=== PATIENT | female | born 1985 | race Caucasian/White ===

== ENCOUNTER 2020-02-22 08:43 | Outpatient (CLI) | payer OTHER, SELFPAY ==
[2020-02-22 09:05] LABS: Basophils # 0.1 10^3/uL (0.0-0.1); Basophils % 1.4 %; Eosinophils # 0.1 10^3/uL (0.0-0.8); Eosinophils % 1.2 %; Hematocrit 45.2 % (37.0-47.0); Hemoglobin 14.7 g/dL (11.5-15.3); Lymphocytes # 2.2 10^3/uL (0.8-4.8); Lymphocytes % 28.9 %; Mean Corpuscular HGB Conc 32.5 g/dL (30.0-36.0); Mean Corpuscular Volume 89.2 fL (81-99); Mean Platelet Volume 9.8 fL (7.4-10.4); Monocytes # 0.5 10^3/uL (0.2-0.9); Monocytes % 6.5 %; Neutrophils # 4.78 10^3/uL (1.8-7.7); Neutrophils % 61.6 %; Nucleated Red Blood Cells % 0 %; Platelet Count 347 10^3/cmm (130-400); Red Blood Count 5.07 10^6/uL (4.1-5.3); Red Cell Distribution Width 13.1 % (12.1-15.1); White Blood Count 7.8 10^3/uL (4.0-10.0)
[2020-02-22 09:21] LABS: Anion Gap 13.5 (5-19); Blood Urea Nitrogen 8 mg/dL (6-20); Calcium 8.9 mg/dL (8.5-10.5); Carbon Dioxide 24 mmol/L (22-29); Chloride 104 mmol/L (98-107); Glomerular Filtration Rate 81.2 mL/min (90-130); Glucose 97 mg/dL (65-115); Osmolality Calculated 280 mOsm/kg (285-295); Potassium 4.5 mmol/L (3.5-5.1); Sodium 137 mmol/L (136-145)
== END 2020-02-22 08:44 | disposition home or self-care (01) ==
PROVIDERS: PCP Family Medicine; Visit Provider Podiatrist Foot & Ankle Surgery
DX: L30.9 Dermatitis, unspecified (principal)
CPT/HCPCS: 80048; 85025

== ENCOUNTER → 2020-03-21 09:31 | Outpatient (BNVA) | payer OTHER, SELFPAY | PROVIDERS: PCP Family Medicine; Visit Provider Nurse Practitioner Women's Health | DX: Z01.419 Encounter for gynecological examination (general) (routine) without abnormal findings (principal) | CPT/HCPCS: 88175 ==

== ENCOUNTER → 2020-10-02 09:38 | Outpatient (BNVA) | payer OTHER, SELFPAY | PROVIDERS: Visit Provider Internal Medicine Rheumatology | DX: M19.90 Unspecified osteoarthritis, unspecified site (principal); Z79.899 Other long term (current) drug therapy; Z11.59 Encounter for screening for other viral diseases; Z11.1 Encounter for screening for respiratory tuberculosis | CPT/HCPCS: 36415; 73130; 73562; 73630; 80076; 82306; 82565; 84550; 85025; 85651; 86431; 86480; 86704; 86803; 87340 ==

== ENCOUNTER → 2020-10-10 15:10 | Outpatient (BNVA) | payer OTHER, SELFPAY | PROVIDERS: PCP Family Medicine; Visit Provider Internal Medicine Rheumatology | DX: M19.90 Unspecified osteoarthritis, unspecified site (principal); L40.0 Psoriasis vulgaris; Z79.899 Other long term (current) drug therapy; E55.9 Vitamin D deficiency, unspecified | CPT/HCPCS: 99204 ==

== ENCOUNTER 2020-12-11 20:39 | Emergency (ER) | payer OTHER, SELFPAY ==
[2020-12-11 21:12] VITALS: BP 126/90; PULSE 78; RESP 16; TEMP 36.4; O2SAT 98; BMI 34.4
--- NOTE | 2020-12-11 21:20 | ECG_ITS ---
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 Measurements Intervals [place] Rate: 75 P: 50 SC: 151 QRS: -13 QRSD: 86 T: 59 QT: 385 QTc: 432 Interpretive Statements SINUS RHYTHM No previous ECG available for comparison Electronically Signed On 12-12-2020 6:59:59 CDT by Padmini Luna M.D. [id number]
--- NOTE | 2020-12-11 21:20 | XRR_ITS ---
PROCEDURE INFORMATION: Exam: XR Chest Exam date and time: 12/11/2020 9:20 PM Age: 35 years old Clinical indication: Other: Epigastric, luq pain; Prior surgery; Surgery type: Breast reduction, appy, abd plasty, colon resection; Additional info: Cp TECHNIQUE: Imaging protocol: XR of the chest. Views: 1 view. COMPARISON: CT abdomen pelvis w con* [id number] 02/22/2015 9:15 AM FINDINGS: Lungs: Unremarkable. No consolidation. Pleural spaces: Unremarkable. No pleural effusion. No pneumothorax. Heart/Mediastinum: Unremarkable. No cardiomegaly. Bones/joints: Unremarkable. XR/XR chest 1V portable [id number] IMPRESSION: No acute findings.
--- NOTE | 2020-12-11 23:20 | ECG_ITS ---
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 Measurements Intervals [place] Rate: 61 P: 52 PA: 171 QRS: 41 QRSD: 109 T: 62 QT: 447 QTc: 451 Interpretive Statements SINUS RHYTHM LOW QRS VOLTAGE IN PRECORDIAL LEADS [QRS DEFLECTION < 1.0 mV IN CHEST LEADS] POSSIBLE ANTERIOR MYOCARDIAL INFARCTION [30 ms Q WAVE IN V3/V4, OR R < 0.2 mV IN V4], PROBABLY OLD Compared to ECG 12/12/2020 00:30:25 Low QRS voltage now present Myocardial infarct finding now present Electronically Signed On 12-12-2020 20:40:01 CDT by Timi Dao M.D. [id number]
--- NOTE | 2020-12-11 23:57 | CTR_ITS ---
PROCEDURE INFORMATION: Exam: CT Abdomen And Pelvis With Contrast Exam date and time: 12/11/2020 11:57 PM Age: 35 years old Clinical indication: Abdominal pain; Localized; Prior surgery; Surgery type: Colon resection. Salpingectomy. Appy. ; Patient HX: Left sided abd pain. TECHNIQUE: Imaging protocol: Computed tomography of the abdomen and pelvis with contrast. Radiation optimization: All CT scans at this facility use at least one of these dose optimization techniques: automated exposure control; mA and/or kV adjustment per patient size (includes targeted exams where dose is matched to clinical indication); or iterative reconstruction. Contrast material: OMNI 300; Contrast volume: 95 ml; Contrast route: INTRAVENOUS (IV); COMPARISON: CT abdomen pelvis w con* [id number] 02/22/2015 9:15 AM RADIATION DOSE METRICS: Total DLP (mGy-cm): 1517.97 FINDINGS: Liver: Normal. No mass. Gallbladder and bile ducts: Normal. No calcified stones. No ductal dilation. Pancreas: Simple cystic lesion in the pancreatic tail measuring 2.5 cm diameter. Growth since prior. Previous measurement 1.1 cm on 02/22/2015. No dilation of main pancreatic duct. No peripancreatic inflammation. Spleen: Normal. No splenomegaly. Adrenal glands: Normal. No mass. Kidneys and ureters: Normal. No hydronephrosis. Stomach and bowel: Unremarkable. No obstruction. No mucosal thickening. Appendix: Appendectomy. Appendectomy. Intraperitoneal space: Unremarkable. No free air. No significant fluid collection. Vasculature: Unremarkable. No abdominal aortic aneurysm. Lymph nodes: Unremarkable. No enlarged lymph nodes. Urinary bladder: Unremarkable as visualized. Reproductive: Unremarkable positioning of intrauterine device. Negative for adnexal mass. Bones/joints: Unremarkable. No acute fracture. Soft tissues: Unremarkable. CT/CT abdomen pelvis w con* [id number] IMPRESSION: 1. Negative for acute abdominopelvic pathology. 2. Slow, mild growth of a pancreatic tail cystic mass. Endoscopic ultrasound characterization may be beneficial. Radiation Dose CTDIVOL = (mGy): DLP = 1517.97 (mGy-cm)
[2020-12-12 00:08] LABS: Basophils # 0.1 10^3/uL (0.0-0.1); Basophils % 0.7 %; Eosinophils % 0.3 %; Hematocrit 42.6 % (37.0-47.0); Hemoglobin 14.1 g/dL (11.5-15.3); Lymphocytes # 3.3 10^3/uL (0.8-4.8); Lymphocytes % 28.1 %; Mean Corpuscular HGB Conc 33.1 g/dL (30.0-36.0); Mean Corpuscular Hemoglobin 29.9 pg (28.0-34.0); Mean Corpuscular Volume 90.4 fL (81-99); Mean Platelet Volume 9.6 fL (7.4-10.4); Monocytes # 0.7 10^3/uL (0.2-0.9); Monocytes % 5.8 %; Neutrophils # 7.56 10^3/uL (1.8-7.7); Neutrophils % 64.8 %; Nucleated Red Blood Cells % 0 %; Platelet Count 362 10^3/cmm (130-400); Red Blood Count 4.71 10^6/uL (4.1-5.3); Red Cell Distribution Width 14.6 % (12.1-15.1); White Blood Count 11.7 10^3/uL (4.0-10.0)
[2020-12-12] MEDS: iohexol 300 mg/mL 100 mL Btl IV (00:16)
[2020-12-12 00:26] LABS: Troponin(5th) Baseline 6 ng/L (0-10)
[2020-12-12 00:29] LABS: Alanine Aminotransferase 12 U/L (0-33); Albumin Level 4.6 g/dL (3.5-5.2); Alkaline Phosphatase 85 IU/L (35-105); Anion Gap 14.1 (5-19); Aspartate Amino Transferase 13 U/L (0-32); Blood Urea Nitrogen 10 mg/dL (6-20); Calcium 9.2 mg/dL (8.5-10.5); Carbon Dioxide 25 mmol/L (22-29); Chloride 103 mmol/L (98-107); Globulin 2.4 g/dL (1.3-4.6); Glomerular Filtration Rate 70.5 mL/min (90-130); Glucose 98 mg/dL (65-115); Lipase 237 U/L (13-60); Osmolality Calculated 285 mOsm/kg (285-295); Potassium 4.1 mmol/L (3.5-5.1); Sodium 138 mmol/L (136-145); Total Bilirubin 0.4 mg/dL (0.15-1.2)
--- NOTE | 2020-12-12 00:57 | W.ED.ABDPA2 ---
HPI - Abdominal Pain General: Chief Complaint: Abdominal Pain Stated Complaint: severe ab pain, chest pain Time Seen by Provider: 12/11/20 23:44 Source: patient Mode of arrival: ambulatory Limitations: no limitations History of Present Illness: HPI narrative: 35-year-old female states that earlier today she started having epigastric abdominal pain. States the pains were sharp in nature and she had some nausea. She rates her pain a 7 out of 10. Denies any worsening improving factors. States it slightly radiates to her chest as well. She had a GI cocktail with no improvement. Associated Symptoms: Denies chills, diarrhea, dysuria, fever(s), nausea and vomiting Review of Systems Const: Denies: fever(s), chills, body aches or change in appetite Eyes: Denies: blurry vision or eye discomfort ENMT: Denies: throat pain or dental pain Card: Denies: chest pain Resp: Denies: dyspnea GI: Reports: abdominal pain; Denies: nausea, vomiting or diarrhea : Denies: dysuria Musc: Denies: neck pain or back pain Skin/Breast: Denies: rash Neuro: Denies: headache(s) Psych: Denies: depression José/Lymph: Denies: easy bruising All/Imm: Denies: urticaria PFSH ED PFSH: Medical History (Updated 12/12/20 @ 02:16 by Cleopatra Witt MD) High risk medication use Immunization counseling Inflammatory arthritis Migraine without aura No pertinent past medical history neghx: htn,dm,thyroid,dvt/pe Onychodystrophy Plaque psoriasis Psoriatic arthritis Surgical History History of colon resection (~02/2015) due to bowel obstruction Hx of abdominoplasty (~2018) Hx of breast reduction, elective (~2015) Hx of unilateral salpingectomy (~03/1997) Left side Family History Father Heart disease Hypercholesteremia Hypertension Grandmother Thyroid disease Maternal Diabetes maternal Mother Cancer, Onset Age: 50 Vaginal cancer Denies family history of Colon cancer Ovarian cancer Clotting disorder Breast cancer Bleeding disorder Uterine cancer Stroke Social History Smoking and tobacco status: never smoked Alcohol intake: current Alcohol intake frequency: holidays/special occasions only Current occupation: [employer] [place] Additional social history: - Tobacco use: Never Alcohol use: Occasional Drug use: Never Physical Exam Const: COMMON NORMALS: no acute distress, patient oriented x3 and healthy appearing HENMT: COMMON NORMALS: normocephalic and atraumatic HEAD & SCALP: normocephalic and atraumatic Eye: COMMON NORMALS: Equal, round and reactive pupils present and EOMs intact bilaterally PUPIL: Yes Equal, round and reactive pupils present Neck/C-Spine: COMMON NORMALS: full ROM and supple Chest: COMMONS NORMALS: normal inspection of the chest and normal palpation of entire chest wall Resp: COMMON NORMALS: normal respiratory effort, No retractions, No use of accessory muscles and clear to auscultation bilaterally AUSCULTATION: clear to auscultation bilaterally Cardio: COMMON NORMALS: regular rate, regular rhythm and No murmurs present (Cardio) RATE: regular rate RHYTHM: regular rhythm GI: COMMON NORMALS: Normal to inspection, nondistended, normoactive bowel sounds present, Soft to palpation and no masses PALPATION: Yes Soft to palpation and Yes Tenderness to palpation present (GI) (epigastric tenderness) Extremity: COMMON NORMALS: normal to inspection and full ROM Neuro: COMMON NORMALS: patient oriented x3, moves all extremities and no focal motor deficits Psych: COMMON NORMALS: mental status grossly normal, Normal thought process present and cooperative THOUGHT PROCESS: Normal thought process present Skin: COMMON NORMALS: no rashes or lesions noted and no wounds GENERAL SKIN EXAM: no rashes or lesions noted Course Vital Signs: Vital signs: Vital Signs Temperature 97.5 F L 12/11/20 21:12 Pulse Rate 58 L 12/12/20 01:15 Respiratory Rate 18 12/12/20 01:21 Blood Pressure 125/97 12/12/20 01:15 Pulse Oximetry 100 12/12/20 01:21 MDM - Abdominal Pain MDM Narrative: Medical decision making narrative: Patient presents here with abdominal pain does have a mild pancreatitis. Her pain is much improved. Abdominal exam is benign. I spoke to Dr. Cooley who will follow her. Patient prescribed [place] for home and is to return if worsening. She understands agrees to plan. Lab Data: Labs: Lab Results 0712/12/20 12/12/20 Range/Units 00:00 00:00 00:00 WBC 11.7 H (4.0-10.0) 10^3/ uL RBC 4.71 (4.1-5.3) 10^6/u L Hgb 14.1 (11.5-15.3) g/dL Hct 42.6 (37.0-47.0) % MCV 90.4 (81-99) fL MCH 29.9 (28.0-34.0) pg MCHC 33.1 (30.0-36.0) g/dL RDW 14.6 (12.1-15.1) % Plt Count 362 (130-400) 10^3/c mm MPV 9.6 (7.4-10.4) fL Neut % (Auto) 64.8 % Lymph % (Auto) 28.1 % [place] % (Auto) 5.8 % Eos % (Auto) 0.3 % Baso % (Auto) 0.7 % Neut # (Auto) 7.56 (1.8-7.7) 10^3/u L Lymph # (Auto) 3.3 (0.8-4.8) 10^3/u L [place] # (Auto) 0.7 (0.2-0.9) 10^3/u L Eos # (Auto) 0.0 (0.0-0.8) 10^3/u L Baso # (Auto) 0.1 (0.0-0.1) 10^3/u L Nucleated RBC % (a uto) 0 % Nucleated RBCs # 0.0 /100WBC Sodium 138 (136-145) mmol/L Potassium 4.1 (3.5-5.1) mmol/L Chloride 103 (98-107) mmol/L Carbon Dioxide 25 (22-29) mmol/L Anion Gap 14.1 (5-19) BUN 10 (6-20) mg/dL Creatinine 0.9 (0.5-0.9) mg/dL GFR Calculation 70.5 L (90-130) mL/min Glucose 98 (65-115) mg/dL Calculated Osmolal ity 285 (285-295) mOsm/k g Calcium 9.2 (8.5-10.5) mg/dL Total Bilirubin 0.4 (0.15-1.2) mg/dL AST 13 (0-32) U/L ALT 12 (0-33) U/L Alkaline Phosphata se 85 (35-105) IU/L Troponin T Baselin e 6 (0-10) ng/L Troponin T 120 Min kathryn (0-10) ng/L Delta Troponin T (0-10) ABS# Total Protein 7.0 (6.6-8.7) g/dL Albumin 4.6 (3.5-5.2) g/dL Globulin 2.4 (1.3-4.6) g/dL Lipase 237 H (13-60) U/L 12/12/20 Range/Units 01:38 WBC (4.0-10.0) 10^3/ uL RBC (4.1-5.3) 10^6/u L Hgb (11.5-15.3) g/dL Hct (37.0-47.0) % MCV (81-99) fL MCH (28.0-34.0) pg MCHC (30.0-36.0) g/dL RDW (12.1-15.1) % Plt Count (130-400) 10^3/c mm MPV (7.4-10.4) fL Neut % (Auto) % Lymph % (Auto) % [place] % (Auto) % Eos % (Auto) % Baso % (Auto) % Neut # (Auto) (1.8-7.7) 10^3/u L Lymph # (Auto) (0.8-4.8) 10^3/u L [place] # (Auto) (0.2-0.9) 10^3/u L Eos # (Auto) (0.0-0.8) 10^3/u L Baso # (Auto) (0.0-0.1) 10^3/u L Nucleated RBC % (a uto) % Nucleated RBCs # /100WBC Sodium (136-145) mmol/L Potassium (3.5-5.1) mmol/L Chloride (98-107) mmol/L Carbon Dioxide (22-29) mmol/L Anion Gap (5-19) BUN (6-20) mg/dL Creatinine (0.5-0.9) mg/dL GFR Calculation (90-130) mL/min Glucose (65-115) mg/dL Calculated Osmolal ity (285-295) mOsm/k g Calcium (8.5-10.5) mg/dL Total Bilirubin (0.15-1.2) mg/dL AST (0-32) U/L ALT (0-33) U/L Alkaline Phosphata se (35-105) IU/L Troponin T Baselin e (0-10) ng/L Troponin T 120 Min kathryn 6.00 (0-10) ng/L Delta Troponin T 0 (0-10) ABS# Total Protein (6.6-8.7) g/dL Albumin (3.5-5.2) g/dL Globulin (1.3-4.6) g/dL Lipase (13-60) U/L Imaging Data ^: CT Abd/Pel: Attestation: I personally reviewed and interpreted this imaging study as follows: Radiologist's impression: [address] [address] [address] Scan Report Signed Patient: Simeon Ackerman Unit #: [id number] : 1985 Age/Sex: 35 / F ADM Date: 12/11/20 Loc: ER Room/Bed: Attending Dr: Ordering Provider/Ordering MD: Cleopatra Witt MD Date of Service: 12/11/20 Procedure(s): CT abdomen pelvis w con* [id number] Accession Number(s): [id number] Report Number: [id number] PROCEDURE INFORMATION: Exam: CT Abdomen And Pelvis With Contrast Exam date and time: 12/11/2020 11:57 PM Age: 35 years old Clinical indication: Abdominal pain; Localized; Prior surgery; Surgery type: Colon resection. Salpingectomy. Appy. ; Patient HX: Left sided abd pain. TECHNIQUE: Imaging protocol: Computed tomography of the abdomen and pelvis with contrast. Radiation optimization: All CT scans at this facility use at least one of these dose optimization techniques: automated exposure control; mA and/or kV adjustment per patient size (includes targeted exams where dose is matched to clinical indication); or iterative reconstruction. Contrast material: OMNI 300; Contrast volume: 95 ml; Contrast route: INTRAVENOUS (IV); COMPARISON: CT abdomen pelvis w con* [id number] 02/22/2015 9:15 AM RADIATION DOSE METRICS: Total DLP (mGy-cm): 1517.97 FINDINGS: Liver: Normal. No mass. Gallbladder and bile ducts: Normal. No calcified stones. No ductal dilation. Pancreas: Simple cystic lesion in the pancreatic tail measuring 2.5 cm diameter. Growth since prior. Previous measurement 1.1 cm on 02/22/2015. No dilation of main pancreatic duct. No peripancreatic inflammation. Spleen: Normal. No splenomegaly. Adrenal glands: Normal. No mass. Kidneys and ureters: Normal. No hydronephrosis. Stomach and bowel: Unremarkable. No obstruction. No mucosal thickening. Appendix: Appendectomy. Appendectomy. Intraperitoneal space: Unremarkable. No free air. No significant fluid collection. Vasculature: Unremarkable. No abdominal aortic aneurysm. Lymph nodes: Unremarkable. No enlarged lymph nodes. Urinary bladder: Unremarkable as visualized. Reproductive: Unremarkable positioning of intrauterine device. Negative for adnexal mass. Bones/joints: Unremarkable. No acute fracture. Soft tissues: Unremarkable. CT/CT abdomen pelvis w con* [id number] IMPRESSION: 1. Negative for acute abdominopelvic pathology. 2. Slow, mild growth of a pancreatic tail cystic mass. Endoscopic ultrasound characterization may be beneficial. CXR: Radiologist's impression: [address] [address] XRay Report Signed Patient: Simeon Ackerman Unit #: [id number] : 1985 Age/Sex: 35 / F ADM Date: 12/11/20 Loc: ER Room/Bed: Attending Dr: Ordering Provider/Ordering MD: Cleopatra Witt MD Date of Service: 12/11/20 Procedure(s): XR chest 1V portable [id number] Accession Number(s): [id number] Report Number: [id number] PROCEDURE INFORMATION: Exam: XR Chest Exam date and time: 12/11/2020 9:20 PM Age: 35 years old Clinical indication: Other: Epigastric, luq pain; Prior surgery; Surgery type: Breast reduction, appy, abd plasty, colon resection; Additional info: Cp TECHNIQUE: Imaging protocol: XR of the chest. Views: 1 view. COMPARISON: CT abdomen pelvis w con* [id number] 02/22/2015 9:15 AM FINDINGS: Lungs: Unremarkable. No consolidation. Pleural spaces: Unremarkable. No pleural effusion. No pneumothorax. Heart/Mediastinum: Unremarkable. No cardiomegaly. Bones/joints: Unremarkable. XR/XR chest 1V portable [id number] IMPRESSION: No acute findings. Dictated By: Doug Irene Signed By: Doug Irene Signed Date/Time: 12/11/202207 DD/ 05 EKG Data ^: EKG 1: Attestation: I personally reviewed and interpreted this EKG as follows: EKG interpretation date: 12/12/20 EKG interpretation time: 00:30 Interpretation: nsr hr [address] or t wave abnormalities qrs 101 qtc 439 Discharge Plan Discharge Patient Disposition: Home Clinical Impression: Abdominal pain Qualifiers: Abdominal location: epigastric Qualified Code(s): R10.13 - Epigastric pain Condition: Stable Prescriptions: New hydrocodone-acetaminophen 5-325 mg tablet 1 tab PO Q6H PRN (Reason: pain) Qty: 14 RF: 0 ondansetron 4 mg tablet,disintegrating 4 mg PO Q6H PRN (Reason: nausea and vomiting) Qty: 14 RF: 0 No Action betamethasone valerate 0.1 % cream 1 applic topical BID PRNRF: 0 methotrexate sodium 2.5 mg tablet 15 mg PO .once a week 30 Days Qty: 30 RF: 3 folic acid 1 mg tablet 1 mg PO .once daily Qty: 90 RF: 3 clobetasol 0.05 % cream 1 g topical BID 14 Days Qty: 60 RF: 1 prednisone 10 mg tablet 10 mg PO DAILY PRN (Reason: inflammatory arthritis ) 7 Days Qty: 30 RF: 1 terbinafine HCl 250 mg tablet 250 mg PO DAILY Qty: 30 RF: 3 silver sulfadiazine [Silvadene] 1 % cream 1 applic topical BID Qty: 50 RF: 0 Lidocaine Viscous 2 % solution 5 ml mucous membrane TID PRN (Reason: pain) Qty: 100 RF: 0 bvssiinlq-axtffi-fwedrsyr-scop [] 16.2 mg-0.1037 mg/5 mL (5 mL) elixir 5 ml PO BID Qty: 50 RF: 0 ondansetron HCl [Zofran] 4 mg tablet 4 mg PO DAILY Qty: 20 RF: 0 Discharge Orders: Discharge ED (Routine); Ordered 12/12/20 Ordered By: Cleopatra Witt Referrals: Macario Casey MD [Primary Care Provider] - Discharge Diet: Advance as tolerated Discharge Activity: Resume usual activity Patient Instructions: Abdominal Pain (ED), Opioid Safety Coding Level of Care Code ED Fishing Boat Mate for Chg Fwd Exam Comprehensive
[2020-12-12 01:15] VITALS: BP 125/97; PULSE 58; RESP 18; O2SAT 100
[2020-12-12 01:21] VITALS: RESP 18; O2SAT 100
[2020-12-12] MEDS: HYDROmorphone 1 mg/mL INJ 1 mL IVP (01:21)
[2020-12-12] MEDS: ondansetron 2 mg/ML SDV 2 mL 4 MG IVP (01:22)
[2020-12-12 02:15] LABS: Troponin 5 2HR Delta 0 ABS# (0-10)
[2020-12-12 02:42] VITALS: BP 114/86; PULSE 64; RESP 16; O2SAT 96
--- NOTE | 2020-12-12 03:20 | ECG_ITS ---
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 Measurements Intervals [place] Rate: 60 P: 48 NC: 155 QRS: 33 QRSD: 101 T: 65 QT: 437 QTc: 440 Interpretive Statements SINUS RHYTHM Compared to ECG 12/11/2020 21:11:42 No significant changes Electronically Signed On 12-12-2020 20:40:05 CDT by Timi Dao M.D. [email or web address]/OM/[id number]
== END 2020-12-12 02:35 | disposition home or self-care (01) ==
PROVIDERS: Emergency Provider Emergency Medicine; PCP Family Medicine
DX: R10.13 Epigastric pain (principal)
CPT/HCPCS: 36415; 71045; 74177; 80053; 83690; 84484; 85025; 93005; 96374; 96375; 99283; J1170; J2405; Q9967

== ENCOUNTER → 2021-06-06 11:53 | Outpatient (BNVA) | payer OTHER, SELFPAY | PROVIDERS: PCP Family Medicine; Visit Provider Family Medicine | DX: J02.9 Acute pharyngitis, unspecified (principal) | CPT/HCPCS: 87880 ==

== ENCOUNTER 2022-03-05 11:55 | Outpatient (CLI) | payer OTHER, SELFPAY ==
--- NOTE | 2022-03-05 12:00 | MR_ITS ---
WS: [id number] MRI RIGHT KNEE HISTORY: Twisting injury 2 months ago. Lateral knee pain. COMPARISON: Radiographs 02/05/2022 Anterior cruciate ligament: Intact. Posterior cruciate ligament: Intact. Medial collateral ligament: Intact. Posterior lateral corner structures: Intact. Medial menisci: Intact. Normal signal, size and shape. Lateral meniscus: Blunting free edge of the posterior horn. Suspicious for radial tear. Extensor mechanism: Distal quadriceps tendon and patellar tendons are intact. Fluid and soft tissue: Small joint effusion. No Coats's cyst. Osseous and articular structures: Patellofemoral compartment: Normal. Patient has a known bipartite patella. Medial compartment: Very minimal narrowing of the medial compartment with thinning and fissuring of t he cartilage. No full-thickness defect. Lateral compartment: Very minimal superficial fissuring of the cartilage. No full-thickness defects. No marrow edema. MR/MR knee RT wo con* [id number] IMPRESSION: 1. Very mild narrowing of the medial lateral compartments with fissuring of th e cartilage. 2. Blunting free edge of the posterior horn lateral meniscus. Suspicious for r adial tear.
== END 2022-03-05 11:56 | disposition home or self-care (01) ==
LOC: RAD 11:56
PROVIDERS: PCP Family Medicine; Visit Provider Physician Assistant
DX: S86.911A Strain of unspecified muscle(s) and tendon(s) at lower leg level, right leg, initial encounter (principal); M25.561 Pain in right knee; X58.XXXA Exposure to other specified factors, initial encounter
CPT/HCPCS: 73560; 73565; 73721

== ENCOUNTER 2022-03-20 10:23 | Day surgery (SDC) | payer OTHER, SELFPAY ==
[2022-03-19 17:06] VITALS: BMI 32.9
[2022-03-20] VITALS (9 sets, daily range): BP systolic 113–124; BP diastolic 80–95; PULSE 79–101; RESP 16–23; TEMP 36.1–36.6; O2SAT 96–100
[2022-03-20] MEDS: sodium chloride 0.9% 1,000 ML 30 ML IV (11:04)
[2022-03-20] MEDS: acetaminophen 1,000 MG/100 ML PIGGYBACK 400 MG IV (11:04)
[2022-03-20] MEDS: ketorolac 30 mg/mL INJ IVP (11:09)
[2022-03-20 11:11] LABS: OR HCG Qualitative Urine Negative (Negative)
--- NOTE | 2022-03-20 11:27 | P.ANESASSM_ITS ---
Pre-Anesthetic Assessment Height/Weight: Height 1.57 m Weight 81.647 kg Temp Pulse Resp BP Pulse Ox O2 Del Method 97.0 F L 82 18 117/84 100 03/20/22 10:41 03/20/22 10:41 03/20/22 10:41 03/20/22 10:41 03/20/22 10:41 03/20/22 10:41 Preop Diagnosis: Right knee lateral meniscus tear Operation Date: 03/20/22 12:00 Proposed Procedures p DIAGNOSTIC AND SURGICAL ARTHROSCOPY RIGHT KNEE WITH PARTIAL LATERAL MENISCECTOMY VS REPAIR 75652,M25.569(Right) - Fausto Turner DO Familial anesthetic complications: None Was Beta Bossman taken within 24 hours: N/A Was Clonidine taken within 24 hours: N/A Last intake: Intake Last Liquid Date 03/19/22 Last Solid Date 03/19/22 Social No alcohol and No tobacco Exam alert, oriented x 3, clear to auscultation bilaterally and regular rate & rhythm Airway Submandibular: within normal limits Cervical ROM: within normal limits Mallampati: Class I Dentition: full History/ROS No significant complaints Pulmonary None reported CV/HEM None reported None reported Hepatic None reported GI Gastroesophageal Reflux Disease (Well controlled ) Metabolic None reported Musc/skel Osteoarthritis/DJD Psoriasis Meniscus tear right knee Neuropsych None reported Anesthetic Plan ASA status: 2 Anesthesia: Anesthesia Evaluation, General and Regional (specify below) (PRN adductor canal block for post op pain control. ) Other: We discussed risk and benefits of general anesthesia including PONV, sore throat (sometimes severe), corneal abrasion, positioning and peripheral nerve injuries, life threatening allergic reaction, post operative ICU admission requiring prolonged intubation, stroke, heart attack, , and rare incidences of recall. Patient consents to proceed with general anesthesia. We discussed risk and benefits of nerve block for post op pain control including management of pain and titration of pain medications as signs/symptoms of nerve block wearing off begin to appear and/or prior bed. We discussed risk of failed nerve block, vascular injury or other vital structure injury, abscess/infection, LAST, and nerve injury. Plan general, PRN nerve block for post op pain control if needed in recovery. Risk of > 500 ml blood loss (7ml/kg in children): No Medications/Allergies Home Medications Medication Instructions Recorded Confirmed Last Taken Type betamethasone valerate 0.1 % 1 applic topical BID PRN Rash 10/10/20 03/19/22 03/19/22 History topical cream clobetasol 0.05 % topical cream 1 g topical BID Psoriasis 2 weeks 10/10/20 03/19/22 03/19/22 Rx #60 grams folic acid 1 mg tablet 1 mg PO .once daily #90 tabs 10/10/20 03/19/22 03/19/22 Rx prednisone 10 mg tablet 10 mg PO DAILY PRN inflammatory 10/10/20 03/19/22 11/26/21 Rx arthritis 7 days #30 tabs lidocaine HCl 2 % mucosal solution 5 ml mucous membrane TID PRN pain 12/11/20 03/19/22 11/26/21 Rx (Lidocaine Viscous) #100 mL lbtgclney-zsgzkllly-ivtshatj-scop 5 ml PO BID #50 mL 12/11/20 03/19/22 11/26/21 Rx 16.2 mg-0.1037 mg/5 mL (5 mL) elixir () citalopram 10 mg tablet (Celexa) 40 mg PO DAILY 06/06/21 03/19/22 03/19/22 History prednisone 20 mg tablet 20 mg PO DAILY 5 days #5 tabs 06/06/21 03/06/22 Unknown Rx pantoprazole 40 mg tablet,delayed 40 mg PO DAILY 90 days #90 tabs 01/27/22 03/19/22 03/19/22 Rx release (Protonix) sucralfate 1 gram tablet (Carafate) 1 g PO TID 30 days #90 tabs 01/27/22 03/19/22 11/26/21 Rx meloxicam 15 mg tablet 15 mg PO DAILY #30 tabs 02/05/22 03/19/22 03/13/22 Rx methotrexate sodium 2.5 mg tablet 15 mg PO .once a week Psoriatic 02/24/22 03/19/22 03/13/22 Rx Arthritis 30 days #90 tabs hydrocodone 5 mg-acetaminophen 325 1 tab PO Q6H PRN pain 7 days #28 03/20/22 Unknown Rx mg tablet tabs Allergies Allergy/AdvReac Type Severity Reaction Status Date / Time No Known Allergies Allergy Verified 03/06/22 11:36 Current Medications Generic Name Dose Route Start Last Admin Trade Name Freq PRN Reason Stop Dose Admin Sodium Chloride 1,000 mls @ 30 mls/hr 03/20/22 10:45 03/20/22 11:04 Sodium Chloride 0.9% IV 03/21/22 10:44 30 mls/hr .Q24H SAROJ Administration PFSH Anesthesia Medical History High risk medication use Immunization counseling Inflammatory arthritis Migraine without aura No pertinent past medical history neghx: htn,dm,thyroid,dvt/pe Onychodystrophy Plaque psoriasis Psoriatic arthritis Tear of lateral meniscus of right knee Surgical History History of colon resection (~02/2015) due to bowel obstruction Hx of abdominoplasty (~2018) Hx of breast reduction, elective (~2015) Hx of unilateral salpingectomy (~03/1997) Left side Family History Father Heart disease Hypercholesteremia Hypertension Grandmother Thyroid disease Maternal Diabetes maternal Mother Cancer, Onset Age: 50 Vaginal cancer Denies family history of Colon cancer Ovarian cancer Clotting disorder Breast cancer Bleeding disorder Uterine cancer Stroke Social History Smoking and tobacco status: never smoked Alcohol intake: current Alcohol intake frequency: holidays/special occasions only Current occupation: [employer] [place] Additional social history: - Tobacco use: Never Alcohol use: Occasional Drug use: Never Female Reproductive History Date of last menstrual period: 04/01/16 Data Anesthesia Cardiac Studies: No Data to Display
--- NOTE | 2022-03-20 12:10 | W.PM.OPSUD ---
Surgery/Procedure H&P Update DATE OF PROCEDURE: March 20, 2022 DATE H&P PERFORMED: 03/06/22 CHANGES TO PREVIOUS DOCUMENTATION: None PREOP DIAGNOSIS: Right knee lateral meniscus tear PRIMARY INDICATION FOR PROCEDURE: Right knee lateral meniscus tear PLANNED PROCEDURE: Operation Date: 03/20/22 12:00 Proposed Procedures p DIAGNOSTIC AND SURGICAL ARTHROSCOPY RIGHT KNEE WITH PARTIAL LATERAL MENISCECTOMY VS REPAIR 24275,M25.569(Right) - Fausto Turner DO
[2022-03-20] MEDS: gabapentin 300 mg Capsule 600 MG PO (13:14)
[2022-03-20] MEDS: magnesium sulfate premix 2 GM/50 ML PIGGYBACK IV (13:31)
[2022-03-20] MEDS: ceFAZolin 2,000 MG in sodium chloride 0.9% (plus) 50 ML 100 MG IV (13:35)
--- NOTE | 2022-03-20 14:50 | PM.OP2 ---
Brief Operative Note Date of procedure: 03/20/22 Pre-op diagnosis: Right knee lateral meniscus tear Post-op diagnosis: same (Right knee lateral right knee lateral meniscus tear, medial and patellofemoral chondromalacia) Procedure Done: Right knee diagnostic and surgical arthroscopy with partial lateral meniscectomy Medial and patellofemoral chondroplasty Extensive synovectomy of medial, lateral, patellofemoral compartments Surgeon: Fausto Turner Estimated blood loss (mL): 5 Complications: None Post-op Plan: Patient recovering in PACU and patient will be given appropriate discharge instructions as well as DVT prophylaxis and pain control postoperatively. We will get her in with PT next week for range of motion and swelling control. 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
--- NOTE | 2022-03-20 14:52 | PM.PACU ---
PACU note Narrative: Patient recovering in PACU. Patient is able to wiggle toes plantarflex dorsiflex ankle. Sensation intact to light touch distally. Distal pulses palpable. Toes are warm well perfused. Exam: awake ( see narrative for detailed examination) Disposition: discharged
--- NOTE | 2022-03-20 14:54 | P.OP_ITS ---
Operative Report Date of procedure: March 20, 2022 Pre-op diagnosis: Preop Diagnosis Right knee lateral meniscus tear Post-op diagnosis: Right knee lateral meniscus tear Medial and patellofemoral compartment chondromalacia Extensive synovitis Procedure done: Right knee diagnostic and surgical arthroscopy with partial lateral meniscectomy Medial and patellofemoral compartment chondroplasty Extensive synovectomy of medial, lateral, patellofemoral compartments Surgeon: Fausto Turner DO Estimated blood loss: 5 mL 20 minutes IV fluids: See anesthesia record Complications: None Findings: See operative note Condition: stable Disposition: same day Brief History: Simeon is a pleasant 36-year-old female 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 She was initially seen and evaluated by one of my partners. At that point time an MRI was ordered for the right knee to evaluate for the right knee pain. Was found to have a lateral meniscus tear. Since my partner does not do arthroscopy patient was referred to my office. Patient presented to my office for discussion of MRI results. Reviewed MRI findings concerning for lateral meniscus tear. Given her age we did talk about partial lateral meniscectomy versus lateral meniscus repair. We did talk about nonoperative and operative intervention. This point time given her age or persistent symptoms despite conservative treatmen would recommend surgical intervention for right knee diagnostic and surgical arthroscopy with partial lateral meniscectomy versus lateral meniscus repair. Had detailed discussion with her about the risk benefits complications alternatives of treatment options. Risks include but are not limited to make it better, make it worse, injury to nerves or vessels, stiffness, persistent pain recurrent tear or surgery. With these risks he understands and agrees to proceed with surgical intervention. Consent was obtained in the office. All questions answered. Procedure: Patient was seen evaluated in the preoperative holding area. Consent was reviewed with patient. The correct extremity was then marked. Patient was seen evaluated by the preoperative team as well as the anesthesia department. Once cleared for surgery she was taken back to the operative suite she was placed in supine position all bony prominences were well well-padded patient was appropriately secured to the bed. Once secured to the bed she underwent anesthesia per the anesthesia department. This point time the lower the half of the bed was then lowered. A nonsterile tourniquet was applied to the right lower extremity thigh. Left lower extremity was then secured onto an armboard. A standard arthroscopy post was then placed on the lateral aspect of the right knee. This point time the right lower extremity was then prepped and draped in standard orthopedic fashion. Patient received appropriate preoperative antibiotics. Final timeout was performed. Esmarch tourniquet was used exsanguinate the extremity. Standard vertical 2 portal arthroscopy was performed of the right knee. Starting with lateral incision. Introduced the trocar and arthroscope. This point time performed by diagnostic arthroscopy. Suprapatellar pouch was clear and free of any loose bodies. It was noted patient did have significant synovitis as well as significant synovium within the patellofemoral area. I then went to the medial gutter which was free of any loose bodies. And entered into the medial compartment. At this point time I established my medial portal with a spinal needle utilizing outside in technique. I then introduced the arthroscopic shaver to perform a synovectomy of the medial compartment. Upon visualization the medial compartment had grade 1 and grade II chondromalacia. There is mostly grade II chondromalacia over a focal region of the medial femoral condyle. I did utilize arthroscopic shaver as well as thermal wand to perform a chondroplasty to stable articular margins. I did inspect the medial meniscus which was pristine with no evidence of tear. The root was probed and secured. This point I entered the intercondylar notch performed a synovectomy of the ligamentum. Evaluation of the ACL and PCL were intact. Then turned my attention towards the lateral compartment. Immediately on the lateral compartment the leg was placed in [id number] position and noted a complex tear of the lateral meniscus. This did not appear to be repairable. The tear had a radial component at the posterior horn to body junction. There was a flap tear throughout the body as well as a longitudinal tear on the posterior horn all of these were nonrepairable. I took a arthroscopic probe to assess the posterior lateral meniscus root which was appropriately secured in its position. This point time this was nonrepairable and determined a partial lateral meniscectomy would be best for this patient. Utilizing arthroscopic biter as well as basket forceps and arthroscopic shaver I then carried out a partial lateral meniscectomy to stable meniscal tissue. The lateral compartment only had grade I chondromalacia. This completed my work in the lateral compartment and went to the lateral gutter this was free of any loose bodies once again synovitis was noted. Next I reentered the patellofemoral joint. The patellofemoral joint had significant synovitis which arthroscopic shaver was used to perform my extensive synovectomy completing all 3 compartments in the patellofemoral joint. Patient was noted to have grade I chondromalacia of the patella and then grade II chondromalacia at the trochlear groove. An arthroscopic shaver and thermal wand was used to perform an appropriate chondroplasty of the patellofemoral compartment. This point the arthroscope was removed all trochars were removed and the fluid was suctioned from the knee. Tourniquet was deflated. Hemostasis was satisfactory. Portals were then closed with interrupted nylon suture. Xeroform 4 x 4's ABD soft roll as well as Víctor wrap was placed at the right knee. Patient was then awakened from anesthesia transported to the [facility] and taken to the PACU in stable condition. Disposition: Patient taken to PACU in stable condition. Will be given appropriate discharge instructions as well as DVT prophylaxis and pain medication postoperatively. She will follow-up with me in office in 2 weeks. Should be weightbearing as tolerated to the right lower extremity. Encourage range of motion. We will get her set up with physical therapy for aggressive range of motion and edema control to get patient back to work as soon as possible. Patient understands agrees with current plan. All questions answered.
--- NOTE | 2022-03-20 15:56 | ANES.PROC ---
Anesthesia Procedures Procedure/Date: 03/20/22 Nerve Block ^: Nerve Block 1: Main Anesthesia: general anesthesia Time Out Performed: Yes Consent: requested by attending/covering physician, from patient, risks and benefits reviewed and patient agrees to proceed Nerve block location: adductor canal Anesthesia monitors applied: pulse oximetry, EKG and BP cuff Nerve block position: semi sitting Anesthetic Used: ropivicaine 0.5% Amount of anesthesia used (mL): 20 Ultrasound used to: visualize and ID femerol nerve Nerve Stimulator Used?: No Interscalene/Femoral BLK: 4 stimuplex 21 g needle used for position and inplane approach, visualize local anesthetic spread and no vascular puncture identified Patient Tolerated Procedure: well Complications: none Additional Comments: After time out sterile prep, using sterile technique, and using real time US guidance for target selection needle was inserted with real time visualization of needle entry and real time visualization of needle advancement toward intended target. Negative aspiration. LA injected incrementally lateral to artery for total of 15 cc ropivacaine with negative aspiration every 5 cc and real time US visualization of LA spread throughout procedure. Needle repositioned to medial side of artery. Positive aspiration. Needle repositioned again medial to artery, negative aspiration. Additinal 5 cc LA injected. Do not suspect femoral artery puncture but positive heme from small vessel puncture while passing through sartorius muscle. Tolerated well. Image(s) saved.
--- NOTE | 2022-03-20 16:02 | ANE.PACU2 ---
Inpatient post-anesthesia follow up: Airway intact: Yes Vital signs: Temperature 97.9 F Pulse Rate 83 Respiratory Rate 16 Blood Pressure 113/80 Pulse Oximetry 99 Oxygen Delivery Me thod Room Air Oxygen Flow Rate 5 Fraction of Inspir ed Oxygen Hydration adequate: Yes Nausea and vomiting: No Pain level: 1 Mental status: Baseline
== END 2022-03-20 16:45 | disposition home or self-care (01) ==
PROVIDERS: Anesthesiology; PCP Family Medicine; Visit Provider Student in an Organized Health Care Education/Training Program
PROC: (CPT 29870; principal; 2022-03-20 12:00)
DX: S83.281A Other tear of lateral meniscus, current injury, right knee, initial encounter (principal); X58.XXXA Exposure to other specified factors, initial encounter; K21.9 Gastro-esophageal reflux disease without esophagitis
CPT/HCPCS: 29876; 29881; 81025; 84703; J1100; J1885; J2405; J2704; J2795; J3010; J3475; J7030

== ENCOUNTER 2022-03-27 06:00 | Outpatient (RCR) | payer OTHER, SELFPAY | END 2022-04-13 23:59 | disposition home or self-care (01) | LOC: SPT 06:00 | PROVIDERS: PCP Family Medicine; Visit Provider Student in an Organized Health Care Education/Training Program | DX: M23.261 Derangement of other lateral meniscus due to old tear or injury, right knee (principal); Z47.89 Encounter for other orthopedic aftercare | CPT/HCPCS: 97110; 97161 ==

== ENCOUNTER → 2023-01-13 09:11 | Outpatient (BNVA) | payer OTHER, SELFPAY | PROVIDERS: PCP Family Medicine; Visit Provider Family Medicine | DX: R10.84 Generalized abdominal pain (principal); R50.9 Fever, unspecified; L40.50 Arthropathic psoriasis, unspecified | CPT/HCPCS: 80053; 81000; 85025; 86140 ==

== ENCOUNTER → 2023-03-26 12:30 | Outpatient (BNVA) | payer BC, SELFPAY | PROVIDERS: PCP Family Medicine; Visit Provider Family Medicine | DX: E66.9 Obesity, unspecified (principal); E88.810 Metabolic syndrome | CPT/HCPCS: 80053; 80061; 83036; 84443; 85025 ==